=== PATIENT | female | born 1970 | race Two or more races ===

== ENCOUNTER 2025-05-19 09:54 | Emergency (ER) | payer OTHER ==
[2025-05-19 10:04] VITALS: BP 113/67; PULSE 73; RESP 18; TEMP 98.1; BMI 26.6
[2025-05-19] MEDS ORDERED: DEXAMETHASONE SOD PHOSPHATE 10 MG/1 ML VIAL ONE (10:53)
[2025-05-19] MEDS ORDERED: METHOCARBAMOL 500 MG TABLET ONE (10:53)
[2025-05-19] MEDS ORDERED: KETOROLAC TROMETHAMINE 15 MG/ML VIAL ONE (10:54)
[2025-05-19] MEDS: KETOROLAC TROMETHAMINE 30 MG/1 ML VIAL IVPUSH ONE ×2 (11:01→11:38)
[2025-05-19] MEDS: METHOCARBAMOL 750 MG TABLET PO ONE (11:01)
[2025-05-19] MEDS: DEXAMETHASONE SOD PHOSPHATE 10 MG/1 ML VIAL IVPUSH ONE (11:01)
[2025-05-19 11:17] LABS: ABSOLUTE IMMATURE GRANULOCYTES 0.04 x10^3/uL (0.0-0.031); BASOPHILS # 0.02 x10^3/uL (0.01-0.08); EOSINOPHIL % 0.6 % (0.7-5.8); EOSINOPHILS # 0.05 x10^3/uL (0.04-0.36); MCHC 31.5 g/dl (32.2-35.5); MEAN CELL VOLUME 89.7 fl (79.4-94.8); MEAN PLT VOLUME 11.2 fl (9.4-12.3); MONOCYTE # 0.99 x10^3/uL (0.24-0.86); MONOCYTE % 10.9 % (4.7-12.5); RDW 14.4 % (12.3-16.6)
[2025-05-19 11:37] LABS: INR 1.06 (0.83-1.09); PROTHROMBIN TIME (PATIENT) 11.7 SEC (9.7-13.0)
[2025-05-19 11:57] LABS: ERYTHROCYTE SEDIMENTATION RATE 16 mm/hr (0-30)
[2025-05-19 12:22] LABS: ALK PHOS 95.0 U/L (45-117); CO2 29.0 mmol/L (21-32); CREATININE 0.7 mg/dL (0.55-1.3); GLUCOSE,RANDOM 97.0 mg/dL (74-106); SGOT/AST 22.0 U/L (15-37); SGPT/ALT 23.0 U/L (13-61); TOT PROT 7.9 g/dl (6.4-8.2)
[2025-05-19 13:35] LABS: HCV DIAGNOSTIC IN-HOUSE W/RFLX NON-REACTIVE (NONREACTIVE); HIV INTERPRETATION NEGATIVE (NEGATIVE)
== END 2025-05-19 13:04 | disposition home or self-care (01) ==
LOC: JER 09:54
PROC: 3E033GC Introduction of Other Therapeutic Substance into Peripheral Vein, Percutaneous Approach (ICD-10-PCS; principal; 2025-05-19)
PROC: 3E0333Z Introduction of Anti-inflammatory into Peripheral Vein, Percutaneous Approach (ICD-10-PCS; 2025-05-19)
DX: M70.51 Other bursitis of knee, right knee (principal); M25.561 Pain in right knee
CPT/HCPCS: 36415; 80053; 85025; 85610; 85651; 86140; 86803; 87389; 99284-25; J1100